=== PATIENT | male | born 1960 | race Caucasian/White ===

== ENCOUNTER 2017-10-06 16:23 | Emergency (ER) | payer OTHER ==
[~2017-10-06] VITALS: Ht 190.5 cm; Wt 116.7 kg
[~2017-10-06 16:23] MED LIST: ASPIRIN EC325 MG PO; CLOPIDOGREL75 MG PO; LOPRESSOR25 MG PO; NICOTINE PATCH1 EAC2 TD; PRAVASTATIN SOD80 MG PO
[2017-10-06 16:28] VITALS: BP 138/96
[2017-10-06] MEDS ORDERED: PERCOCET 5/31 TABLET PO (17:55)
== END 2017-10-06 18:08 | disposition home or self-care (01) ==
LOC: EME 16:23
PROC: 2W38X1Z Immobilization of Right Upper Extremity using Splint (ICD-10-PCS; principal; 2017-10-06)
DX: S60.221A Contusion of right hand, initial encounter (principal); W18.30XA Fall on same level, unspecified, initial encounter; F17.200 Nicotine dependence, unspecified, uncomplicated
CPT/HCPCS: 73110; 99281; 99284; J3010